=== PATIENT | female | born 1950 | race Caucasian/White ===

== ENCOUNTER 2019-05-25 13:19 | Emergency (ER) | payer MEDICARE, BC ==
[2019-05-25] MEDS ORDERED: NORMAL SALINE 1000 ML 1,000 ML IV ONE (13:20)
[2019-05-25] MEDS ORDERED: ONDANSETRON HCL INJ/PF 4 MG/2 ML SDV IV ONE (13:20)
[2019-05-25 13:39] LABS: ABSOLUTE LYMPHOCYTES (AUTO) 0.9 10^3/uL (0.5-4.7); ABSOLUTE MONOCYTES (AUTO) 0.5 10^3/uL (0.1-1.4); BASOPHILS % (AUTO) 0.5 % (0-2); EOSINOPHILS % (AUTO) 0.3 % (0-6); HEMATOCRIT 42.3 % (36.0-47.0); HEMOGLOBIN 14.3 g/dL (12.0-15.5); LYMPHOCYTES % (AUTO) 9.3 % (13-45); MEAN CORPUSCULAR HEMOGLOBIN 32.3 pg (27.0-33.4); MEAN CORPUSCULAR HGB CONC 33.7 g/dL (32.0-36.0); MEAN CORPUSCULAR VOLUME 96 fl (80-97); MONOCYTES % (AUTO) 4.9 % (3-13); PLATELET COUNT 209 10^3/uL (150-450); RED BLOOD COUNT 4.42 10^6/uL (3.72-5.28); RED CELL DISTRIBUTION WIDTH 12.8 % (11.5-14.0); TOTAL CELLS COUNTED % (AUTO) 100 %; WHITE BLOOD COUNT 9.5 10^3/uL (4.0-10.5)
[2019-05-25 13:55] LABS: ALBUMIN 4.2 g/dL (3.5-5.0); ALKALINE PHOSPHATASE 115 U/L (38-126); ANION GAP 6 (5-19); ASPARTATE AMINO TRANSFERASE 27 U/L (14-36); BILIRUBIN,DIRECT 0.1 mg/dL (0.0-0.4); BILIRUBIN,TOTAL 1.6 mg/dL (0.2-1.3); BLOOD UREA NITROGEN 21 mg/dL (7-20); CALCIUM 11.8 mg/dL (8.4-10.2); CARBON DIOXIDE 29 mmol/L (22-30); CHLORIDE 103 mmol/L (98-107); GLUCOSE 133 mg/dL (75-110); POTASSIUM 4.2 mmol/L (3.6-5.0); TOTAL PROTEIN 7.1 g/dL (6.3-8.2)
[2019-05-25 14:00] LABS: AMORPHOUS SEDIMENT,URINE 1+ /HPF; APPEARANCE,URINE TURBID; BILIRUBIN,URINE NEGATIVE (NEGATIVE); COLOR,URINE YELLOW; GLUCOSE, URINE NEGATIVE (NEGATIVE); KETONES,URINE 20 mg/dL (NEGATIVE); LEUKOCYTE ESTERASE,URINE NEGATIVE (NEGATIVE); NITRITE,URINE NEGATIVE (NEGATIVE); PROTEIN,URINE NEGATIVE (NEGATIVE); URINE SPECIFIC GRAVITY 1.013; UROBILINOGEN,URINE NEGATIVE mg/dL (<2.0)
[2019-05-25] MEDS ORDERED: METOCLOPRAMIDE HCL INJ/PF 10 MG/2 ML SDV IV ONE (14:40)
[2019-05-25] MEDS ORDERED: KETOROLAC TROMETHAMINE INJ/PF 30 MG/1 ML SDV IV ONE (14:40)
--- NOTE | 2019-05-25 16:45 | ER Document Report ---
ED General Pain - General Chief Complaint: Flank Pain Stated Complaint: BACK PAIN/FLANK PAIN Mode of Arrival: Medic Information source: Patient TRAVEL OUTSIDE OF THE [place] IN LAST 30 DAYS: No - HPI Onset: Other - patient had bladder and flank pain starting last Monday but severe pain started today Quality of pain: Sharp Severity: Severe Pain Level: 5 Context: New onset Exacerbated by: Movement Relieved by: Denies Similar symptoms previously: No Recently seen / treated by doctor: No Notes: 69 year old female with no known PMH here for severe left sided flank pain, moderate left lower abdominal pain, and nausea. The patient noticed some bladder and left flank pain last Monday and but pain was significantly worse today and associated with nausea and vomiting. The patient says she has a pressure when she urinates as well. The patient denies fevers, chills, sweats. The patient has never had kidney stone before and she has had no abdominal surgeries. Past Medical History - General Information source: Patient - Social History Smoking Status: Never Smoker Frequency of alcohol use: Occasional Drug Abuse: None Lives with: Alone Family History: Reviewed & Not Pertinent Patient has suicidal ideation: No Patient has homicidal ideation: No Review of Systems - Review of Systems Constitutional: No symptoms reported EENT: No symptoms reported Cardiovascular: No symptoms reported Respiratory: No symptoms reported Gastrointestinal: Abdominal pain, Nausea, Vomiting Genitourinary: Flank pain, Other - pressure sensation when urinating Physical Exam - Vital signs Vitals: Temp Pulse Resp BP 97.5 F 62 19 119/63 05/25/19 13:23 05/25/19 13:23 05/25/19 13:23 05/25/19 13:23 - Notes Notes: GENERAL: Ill appearing, well-nourished and in no acute distress. HEAD: Atraumatic, normocephalic. EYES: Pupils equal round and reactive to light, extraocular movements intact, sclera anicteric, conjunctiva are normal. ENT: Nares patent, oropharynx clear without exudates. Moist mucous membranes. NECK: Normal range of motion, supple without lymphadenopathy or JVD. LUNGS: Breath sounds clear to auscultation bilaterally and equal. No wheezes rales or rhonchi. HEART: Regular rate and rhythm without murmurs, rubs or gallops. ABDOMEN: Left lower quadrant abdominal tenderness, soft, normoactive bowel sounds. No guarding, no rebound. No masses appreciated. : left flank tenderness EXTREMITIES: Normal range of motion, no pitting or edema. No clubbing or cyanosis. NEUROLOGICAL: Cranial nerves II through XII grossly intact. Normal speech, normal gait. PSYCH: Normal mood, normal affect. SKIN: Warm, Dry, normal turgor, no rashes or lesions noted. Course - Re-evaluation Re-evalutation: 05/25/19 18:31 The patient did not have much relief from Toradol, Zofran, and Reglan. Compazine and Morphine nearly resolved her symptoms however. The patient was found to have a distal ureter 2mm stone causing some hydronephrosis and a left intrameduallary 5mm stone. Patient is from [place] and she plans to follow up with a Urologist there as she likely would benefit from lithotripsy due to the 5mm sto ne. Patient told she would likely pass the 2mm stone. Will prescribe Hydrocodone and Compazine and encourage fluid intake. - Vital Signs Vital signs: Temp Pulse Resp BP Pulse Ox 97.5 F 62 19 119/63 05/25/19 13:23 05/25/19 13:23 05/25/19 13:23 05/25/19 13:23 - Laboratory Result Diagrams: 05/25/19 13:25 05/25/19 13:25 Laboratory results interpreted by me: 05/25/19 05/25/19 05/25/19 13:25 13:25 13:25 Lymph % (Auto) 9.3 L Seg Neutrophils % 85.0 H BUN 21 H Glucose 133 H Calcium 11.8 H Total Bilirubin 1.6 H Urine Ketones 20 H Urine Ascorbic Acid 20 H - Diagnostic Test Radiology reviewed: Image reviewed, Reports reviewed Discharge - Discharge Clinical Impression: Kidney stone on left side Condition: Stable Disposition: HOME, SELF-CARE Instructions: Kidney Stone ([facility]) Additional Instructions: Use Compazine as needed for nausea. Use Tylenol and Motrin for pain. Use [place] for pain not well controlled. Follow up with a urologist. Strain your urine and bring any passed kidney stones with you to your follow up appointment. Prescriptions: Prochlorperazine Maleate [Compazine] 10 mg PO Q8H PRN #10 tablet PRN Reason: Prochlorperazine Maleate [Compazine] 10 mg PO Q8H #15 tablet Hydrocodone/Acetaminophen [[place] 5-325 mg Tablet] 1 tab PO Q6H 5 Days #10 tablet
[2019-05-25] MEDS ORDERED: MORPHINE SULFATE 10 MG/ML INJ IV ONE (16:50)
[2019-05-25] MEDS ORDERED: PROCHLORPERAZINE EDISYLATE INJ 10 MG/2 ML VIAL IV ONE (16:52)
--- NOTE | 2019-05-25 18:05 | RADIOLOGY REPORT (SQ) ---
EXAM DESCRIPTION: CT ABD/PELVIS NO ORAL OR IV COMPLETED DATE/TIME: 05/25/2019 5:21 pm REASON FOR STUDY: eval for obstructing kidney stone COMPARISON: None. TECHNIQUE: CT scan of the abdomen and pelvis performed without intravenous or oral contrast. Images reviewed with lung, soft tissue, and bone windows. Reconstructed coronal and sagittal MPR images revi ewed. All images stored on PACS. All CT scanners at this facility use dose modulation, iterative reconstruction, and/or weight based d osing when appropriate to reduce radiation dose to as low as reasonably achievable (ALARA). [facility]: Dose Right [facility]: CareDose [facility]: Dose Right [facility]: Teradose 4D [facility]: LMN-1 RADIATION DOSE: CT Rad equipment meets quality standard of care and radiation dose reduction techniq ues were employed. CTDIvol: 5.6 mGy. DLP: 261 mGy-cm.mGy. LIMITATIONS: None. FINDINGS: LOWER CHEST: No significant findings. No nodules or infiltrates. NON-CONTRASTED LIVER, SPLEEN, ADRENALS: Evaluation limited by lack of IV contrast. No identified sign ificant masses. PANCREAS: No masses. No peripancreatic inflammatory changes. GALLBLADDER: No identified stones by CT criteria. No inflammatory changes to suggest cholecystitis. RIGHT KIDNEY AND URETER: No suspicious masses. Assessment limited by lack of IV contrast. There are calcifications scattered throughout the right kidney, however these may be vascular versus uroliths. No hydronephrosis or hydroureter. LEFT KIDNEY AND URETER: There is a nonobstructing 5 mm stone in the superior pole of the left kidney. There are multiple calcifications scattered throughout the left kidney, however it is unclear wheth er these are vascular calcifications or uroliths. There is mild dilatation of the renal calices in t he left kidney as well as the proximal left ureter. There is a 2 mm stone in the distal left ureter at the ureterovesicular junction. AORTA AND RETROPERITONEUM: No aneurysm. No retroperitoneal masses or adenopathy. BOWEL AND PERITONEAL CAVITY: No obvious masses or inflammatory changes. No free fluid. APPENDIX: Not visualized. PELVIS, BLADDER, AND ABDOMINAL WALL:No abnormal masses. No free fluid. Bladder normal. BONES: No significant findings. OTHER: No other significant finding. IMPRESSION: 1. 2 mm stone in the distal left ureter resulting in mild left-sided urinary obstruction . 2. left-sided nephrolithiasis 3. Chronic changes as above. COMMENT: Quality ID # [id number]: Final reports with documentation of one or more dose reduction techniques (e.g., Automated exposure control, adjustment of the mA and/or kV according to patient size, use of iterative reconstruction technique) TECHNICAL DOCUMENTATION: JOB ID: [id number] 2010 [employer]- All Rights Reserved Reading location - IP/workstation name: [email or web address]
[2019-05-25 18:59] VITALS: BP 113/58
[2019-05-25] MEDS ORDERED: HYDROCODONE/ACETAMINOPHEN 5-325 MG TABLET PO ONE (19:03)
[2019-05-25] MEDS ORDERED: PROMETHAZINE HCL 25 MG TABLET PO ONE (19:08)
== END 2019-05-25 19:20 | disposition home or self-care (01) ==
LOC: ER 13:19
DX: N13.2 Hydronephrosis with renal and ureteral calculous obstruction (principal); R11.2 Nausea with vomiting, unspecified
CPT/HCPCS: 99284; 96361; 96374; 96375; 36415; 85025; 80053; 81001; 74176; J1885; J2765; J2270; J0780; A9270; J2405; J7030